=== PATIENT | female | born 1985 | race Caucasian/White ===

== ENCOUNTER 2020-03-18 02:52 | Inpatient (IN) | payer OTHER ==
[~2020-03-18] VITALS: Ht 167.6 cm; Wt 58.8 kg
[2020-03-18 03:47] LABS: HEMATOCRIT 39.9 % (36.0-47.0); HEMOGLOBIN 13.1 g/dl (12.0-15.5); MEAN CORPUSCULAR HEMOGLOBIN 29.9 pg (27.0-33.0); MEAN CORPUSCULAR HGB CONC 32.8 g/dl (32.0-36.5); MEAN CORPUSCULAR VOLUME 91.1 fl (80.0-96.0); PLATELET COUNT, AUTOMATED 179 10^3/uL (150-450); RED BLOOD COUNT 4.38 10^6/uL (4.00-5.40); WHITE BLOOD COUNT 5.3 10^3/uL (4.0-10.0)
[2020-03-18 04:22] LABS: HCG, SERUM QUALITATIVE NEGATIVE (NEGATIVE)
[2020-03-18 04:23] LABS: ACETAMINOPHEN LEVEL < 2.0 UG/ML (10.0-30.0); ALBUMIN 3.3 GM/DL (3.2-5.2); ALT/SGPT 30 U/L (12-78); AMPHETAMINES LEVEL URINE NEGATIVE (NEGATIVE); BARBITURATES URINE NEGATIVE (NEGATIVE); BENZODIAZEPINES URINE NEGATIVE (NEGATIVE); BILIRUBIN,DIRECT < 0.1 MG/DL (0.0-0.2); BILIRUBIN,TOTAL 0.3 MG/DL (0.2-1.0); BLOOD UREA NITROGEN 17 MG/DL (7-18); CALCIUM LEVEL 8.7 MG/DL (8.5-10.1); CANNABINOIDS URINE NEGATIVE (NEGATIVE); CARBON DIOXIDE LEVEL 26 MEQ/L (21-32); CHLORIDE LEVEL 107 MEQ/L (98-107); COCAINE METABOLITE URINE NEGATIVE (NEGATIVE); CREATININE FOR GFR 0.96 MG/DL (0.55-1.30); ETHYL ALCOHOL (ETHANOL) < 0.003 % (0.000-0.010); GLOMERULAR FILTRATION RATE > 60.0 (>60); GLUCOSE, FASTING 85 MG/DL (70-100); METHADONE URINE NEGATIVE (NEGATIVE); OPIATES URINE NEGATIVE (NEGATIVE); PHENCYCLIDINE URINE NEGATIVE (NEGATIVE); POTASSIUM SERUM 4.3 MEQ/L (3.5-5.1); SALICYLATE LEVEL < 1.7 MG/DL (5.0-30.0); SODIUM LEVEL 140 MEQ/L (136-145); TOTAL PROTEIN 6.9 GM/DL (6.4-8.2)
[2020-03-18] MEDS ORDERED: XULA1DIS TOP (04:35)
[2020-03-18] MEDS ORDERED: traZODone 50 MG TAB PO PRN (05:45)
[2020-03-18] MEDS ORDERED: ACETAMINOPHEN TAB 650MG DOSE (2X325MG) PO PRN (05:45)
[2020-03-18] MEDS ORDERED: MAALOX 30 ML SUSP *UDC PO PRN (05:45)
[2020-03-18] MEDS ORDERED: MOM 30ML SUSPENSION UDC PO PRN (05:45)
[2020-03-18 08:21] VITALS: BP 126/81
--- NOTE | 2020-03-18 14:59 | HPEPDOC ---
[facility] Medical History & Physical Date of Admission Mar 18, 2020 Date of Service: Mar 18, 2020 History and Physical Chief complaint: Presented to [facility] after she had experienced suicidal magaly ation and was admitted to inpatient mental health unit Hospitalist service was contacted for medical screening evaluation History of present illness: Patient is a 34-year-old female with no significant past medical history or surgical history who has presented to [facility] after reporting suicidal ideation. She has been admitted to the inpatient mental health unit under the care of psychiatry and hospitalist service was contacted for medical screening evaluation. Currently, patient reports a mild headache. She denies any active nausea, vomi ting, chest pain, shortness of breath, palpitations, abdominal pain, constipation, diarrhea, or urinary discomfort. . She reports some chills but denies any fevers. Reports her appetite is fairly normal and denies any changes in her weight. Past Medical History: See HPI Past Surgical History: See HPI Allergies: See below Medications: See below Family History: - No history of malignancies that patient is aware of Social History: - Denies the use of illicit drugs; patient reports that she smokes occasionally and drinks alcohol socially - Denies recent travel or sick contacts [facility] Occupation; patient reports that she is in the [employer] Review of Systems: 10 point review of systems complete, all negative otherwise stated in HPI Physical exam: - Vitals: BP [126/81], HR [71], RR [20], Sat [100%RA], Temp [97.0F] - General: Lying in bed, No acute distress, Speaking in full sentences, AAOx3 - HEENT: NC, AT, PERRLA - CVS: RRR, +S1S2, - Murmurs / rubs / gallops - Lungs: Fair air entry bilaterally, No appreciable wheezing / rales / rhonchi - Abdomen: Soft, Non-distended, Non-tender - Extremities: No lower extremity edema, No calf tenderness - Neuro: No focal motor or sensory deficit - Skin: No visible rashes Assessment and Plan: Suicidal ideation - Patient has been admitted to the inpatient mental health unit under the care of psychiatry - Currently being managed by psychiatry No significant past medical history DVT prophylaxis - Will continue with early ambulation 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 throughout the duration of this history and physical examination Thank you for this consultation; hospitalist service will now sign off, please re-consult as needed Vital Signs Vital Signs Date Time Temp Pulse Resp B/P (MAP) Pulse Ox O2 Delivery O2 Flow Rate FiO2 03/18/20 08:21 97.0 71 20 126/81 (96) 100 Room Air Laboratory Data Labs 24H Laboratory Tests 2 03/18/20 03:41: Nucleated Red Blood Cells % (auto) 0.0, Anion Gap 7L, Glomerular Filtration Rate > 60.0, Calcium Level 8.7, Total Bilirubin 0.3, Direct Bilirubin < 0.1, Aspartate Amino Transf (AST/SGOT) 21, Alanine Aminotransferase (ALT/SGPT) 30, Alkaline Phosphatase 62, Total Protein 6.9, Albumin 3.3, Albumin/Globulin Ratio 0.9L, Thyroid Stimulating Hormone (TSH) 2.010, Human Chorionic Gonadotropin, Qual NEGATIVE, Salicylates Level < 1.7L, Urine Opiates Screen NEGATIVE, Urine Methadone Screen NEGATIVE, Acetaminophen Level < 2.0L, Urine Barbiturates Screen NEGATIVE, Urine Phencyclidine Screen NEGATIVE, Urine Amphetamines Screen NEGATIVE, Urine Benzodiazepines Screen NEGATIVE, Urine Cocaine Metabolite Screen NEGATIVE, Urine Cannabinoids Screen NEGATIVE, Ethyl Alcohol Level < 0.003 CBC/BMP Laboratory Tests 03/18/20 03:41 Home Medications Scheduled Norelgestromin/Ethin.estradiol (Xulane Patch) 1 Each Patch.tdwk, 1 PATCH TOP Q7D Allergies Coded Allergies: No Known Allergies (Unverified , 03/18/20) EMMANUEL WILKINS MD Mar 18, 2020 14:59
[2020-03-18 18:00] VITALS: BP 121/71
[2020-03-18] MEDS ORDERED: ZIPRASIDONE 20MG CAPSULE (GEODON) PO SCH (18:00)
[2020-03-19 06:45] VITALS: BP 129/61
[2020-03-19 18:08] VITALS: BP 121/72
[2020-03-20 06:42] VITALS: BP 112/72
--- NOTE | 2020-03-20 09:57 | MHIPNPDOC ---
[facility] Progress Note Progress Note DATE OF SERVICE: 03/20/20 Subjective HPI: patient was met with today for the first time. She reports having significant difficulties with [employer] and feeling that she is invalidated and made to feel worthless. She reports a history of being homeless in the past and had joined the to get a sense of accomplishment. She reports that this has not been possible, and she has generally done fairly poorly in the by her perception. She reports that she had had some suicidal thoughts. She discussed reportedly that the provider had mentioned she had delusions of grandeur, and appeared quite fixated on this. However, during the discussion, she was quite cogent, and nursing staff reports that she has linear, logical conversations without any signs of delusion or paranoia. Objective Behavior: Pleasant. Engaged. Cooperative with good eye contact. Mood: Mildly dysthymic. Constricted. Speech: Normal rate. Normal volume. Spontaneous and Fluid. Cognition: Alert, Attentive, and Oriented to person, place, time. Thought Form: Linear and goal directed. Thought Content: No thoughts of self harm. No evidence of aggressive or homicidal ideation. No evidence of suicidal ideation. No auditory or visual hallucinations. No evidence of delusions. Perception: No perceptual abnormalities noted. Paranoid delusions found on exam. Judgement: Fair to poor. Assessment F43.24 Adjustment disorder with disturbance of conduct Plan Patient at this time is not interested in medications. Delusions of grandeur are unclear. Im not able to see the on-call providers notes at this time. However, she is not presently delusional in any form. It appears likely that personality could play a part in her skewed belief system. 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 Shes contemplative about medications and generally may not do well on that. Shell be kept on a voluntary understanding at this time as shes ambivalent about going. Well see if she wishes to go tomorrow. Concern about regressive environment making the patient more dependent and worse. Vital Signs Vital Signs Date Time Temp Pulse Resp B/P (MAP) Pulse Ox O2 Delivery O2 Flow Rate FiO2 03/20/20 06:42 97.9 92 15 112/72 (85) 97 Room Air Current Medications Current Medications Medications (Trade) Dose Ordered Sig/Andrea Route PRN Reason Start Time Stop Time Status Last Admin Dose Admin Acetaminophen (Tylenol Tab) 650 mg Q6HP PRN PO HEADACHE or DISCOMFORT 03/18/20 05:45 03/20/20 08:24 Al Hydrox/Mg Hydrox/Simethicone (Mylanta) 30 ml Q4HP PRN PO HEARTBURN/INDIGESTION 03/18/20 05:45 Home Med (Med Rec Complete!) ASDIRECTED XX 03/18/20 04:45 03/18/20 04:39 DC Magnesium Hydroxide (Milk Of Magnesia) 30 ml DAILYPRN PRN PO CONSTIPATION 03/18/20 05:45 Trazodone HCl (Desyrel) 50 mg QHSP PRN PO INSOMNIA 03/18/20 05:45 Ziprasidone (Geodon) 40 mg BIDWM PO 03/18/20 18:00 03/18/20 13:39 DC Allergies Coded Allergies: No Known Allergies (Unverified , 03/18/20) HONEY GARY DO Mar 20, 2020 09:57
[2020-03-20 16:06] VITALS: BP 129/63
[2020-03-21 06:38] VITALS: BP 146/62
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
--- NOTE | 2020-03-21 10:20 | MHDSPDOC ---
[facility] Discharge Summary Discharge Summary DATE OF ADMISSION: Mar 18, 2020 at 05:37 DATE OF DISCHARGE:Mar 21, 2020 at 14:05 DISCHARGE DIAGNOSES: F43.12 Post-traumatic stress disorder, chronic CONSULTANTS INVOLVED:[ None (basic hospitalist screening)] REASON FOR ADMISSION & TREATMENT AND PROGRESS ON THE UNIT : The patient was admitted to the inpatient mental health unit after reporting suicidal thoughts, she reports a history of trauma and some really triggering events, the notes for the on-call provider were reviewed, indicating concerns for borderline characteristics. There is been some mention of attention seeking characteristics, but these appear to be fairly minor and were not enough to justify such a diagnosis. She was generally well behaved. If dysthymic at times. She was engaged in initially elected to stay another several days, where she then requested to be discharged after cooperating well and denying suicidal and homicidal ideation consistently. She was peek contemplate about medications and wants to try therapy. [facility] DISCHARGE ASSESSMENT[improved] Legal status considerations: The patient at the time of discharge did not meet criteria for involuntary admission/extension due to having a [normal] mental status exam, [fair] insight into the situation, They are engaged in the discharge process, as well as being friendly and amenable in behavioral control and havent been engaging in any observed concerning behavior or ideation recently. They decline voluntary extension/admission at this time and must be discharged in good minoo, as Im unable to make a case for holding the patient against their will. They may have historical risk factors of admissions and other interactions with psychiatry however, those are not modifiable from a clinical perspective. The patient will need to be discharged in good minoo. MENTAL STATUS EXAMINATION ON DISCHARGE: [General: Well dressed with good hygiene Speech: Spontaneous and fluid Thought processes: Linear and logical Thought content: Future orientated Abstract reasoning, and computation: Intact Description of associations: Intact Description of abnormal or psychotic thoughts:Denies any suicidal or homicidal ideation. Denies any auditory or visual hallucinations. Does not appear to be responding to internal stimuli. Does not appear to be endorsing any bizarre or paranoid ideation. Judgment: fair Insight: fair Orientation: Alert and orientated 3 Recent and remote memory: Intact Attention span and concentration: Intact Fund of knowledge: Adequate Mood: "okay" Affect: Euthymic with a full range] PLAN/FOLLOWUP ARRANGEMENTS: Follow up appointments made (PCP and MH in 5 days of D/C date) and safety plan completed. Safety Planning aspects completed prior to discharge [DOD: Weapons Profile 30 days] [RN reviewed crisis hotline information and other aspects to empower patient to access care in interim before next appointment.] The amount of time spent in the coordination of care for this patient was approximately 30 minutes. Vital Signs/I&Os Vital Signs Date Time Temp Pulse Resp B/P (MAP) Pulse Ox O2 Delivery O2 Flow Rate FiO2 03/21/20 06:38 98.7 71 16 146/62 (90) Room Air 03/20/20 06:42 97 Medications Scheduled Norelgestromin/Ethin.estradiol (Xulane Patch) 1 Each Patch.tdwk, 1 PATCH TOP Q7D, (Reported) Allergies Coded Allergies: No Known Allergies (Unverified , 03/18/20) HONEY GARY DO Mar 21, 2020 10:20
== END 2020-03-21 14:05 | disposition home or self-care (01) | DRG 882 ==
LOC: M ED 02:52 → M ED INP 05:37 → M PSY 08:35
PROVIDERS: ADMIT Psychiatry & Neurology Psychiatry; ATTEND Psychiatry & Neurology Addiction Medicine
DX: F43.12 Post-traumatic stress disorder, chronic (principal); R45.851 Suicidal ideations

== ENCOUNTER 2020-04-04 17:14 | Emergency (ER) | payer OTHER ==
[~2020-04-04] VITALS: Ht 167.6 cm; Wt 62.2 kg
[~2020-04-04 17:14] MED LIST: XULA1DIS TOP
[2020-04-04 18:49] LABS: HEMATOCRIT 39.7 % (36.0-47.0); HEMOGLOBIN 12.8 g/dl (12.0-15.5); MEAN CORPUSCULAR HGB CONC 32.2 g/dl (32.0-36.5); MEAN CORPUSCULAR VOLUME 89.8 fl (80.0-96.0); PLATELET COUNT, AUTOMATED 229 10^3/uL (150-450); RED BLOOD COUNT 4.42 10^6/uL (4.00-5.40); WHITE BLOOD COUNT 7.3 10^3/uL (4.0-10.0)
[2020-04-04 19:07] LABS: AMPHETAMINES LEVEL URINE NEGATIVE (NEGATIVE); BARBITURATES URINE NEGATIVE (NEGATIVE); BENZODIAZEPINES URINE NEGATIVE (NEGATIVE); CANNABINOIDS URINE NEGATIVE (NEGATIVE); COCAINE METABOLITE URINE NEGATIVE (NEGATIVE); METHADONE URINE NEGATIVE (NEGATIVE); OPIATES URINE NEGATIVE (NEGATIVE); PHENCYCLIDINE URINE NEGATIVE (NEGATIVE)
[2020-04-04 19:12] LABS: HCG, SERUM QUALITATIVE NEGATIVE (NEGATIVE)
[2020-04-04 19:17] LABS: ACETAMINOPHEN LEVEL < 2.0 UG/ML (10.0-30.0); ALBUMIN 3.8 GM/DL (3.2-5.2); ALT/SGPT 23 U/L (12-78); BILIRUBIN,DIRECT < 0.1 MG/DL (0.0-0.2); BILIRUBIN,TOTAL 0.2 MG/DL (0.2-1.0); BLOOD UREA NITROGEN 17 MG/DL (7-18); CALCIUM LEVEL 9.4 MG/DL (8.5-10.1); CARBON DIOXIDE LEVEL 25 MEQ/L (21-32); CHLORIDE LEVEL 104 MEQ/L (98-107); CREATININE FOR GFR 0.92 MG/DL (0.55-1.30); ETHYL ALCOHOL (ETHANOL) < 0.003 % (0.000-0.010); GLOMERULAR FILTRATION RATE > 60.0 (>60); GLUCOSE, FASTING 86 MG/DL (70-100); POTASSIUM SERUM 3.9 MEQ/L (3.5-5.1); SALICYLATE LEVEL < 1.7 MG/DL (5.0-30.0); SODIUM LEVEL 136 MEQ/L (136-145); TOTAL PROTEIN 7.6 GM/DL (6.4-8.2)
--- NOTE | 2020-04-04 20:58 | ECGEPIP ---
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
[2020-04-05 02:41] VITALS: BP 139/61
== END 2020-04-05 02:46 | disposition short-term general hospital (02) ==
LOC: M ED 17:14
DX: R45.851 Suicidal ideations (principal); F33.9 Major depressive disorder, recurrent, unspecified; R00.1 Bradycardia, unspecified; Z20.828 Contact with and (suspected) exposure to other viral communicable diseases; Z91.040 Latex allergy status; F17.200 Nicotine dependence, unspecified, uncomplicated
CPT/HCPCS: 36415; 80048; 80076; 80307; 84443; 84703; 85027; 93005; 99284; G0480; U0002